=== PATIENT | male | born 1980 | race Caucasian/White ===

== ENCOUNTER 2018-07-15 23:21 | Emergency (ER) | payer BC, SELFPAY ==
[2018-07-15 23:22] VITALS: BP 137/80; PULSE 76; RESP 14; TEMP 36.4; O2SAT 98; BMI 27.3
--- NOTE | 2018-07-16 00:13 | EKG12_ITS ---
Test Reason : Blood Pressure : / mmHG Vent. Rate : 087 BPM Atrial Rate : 087 BPM P-R Int : 152 ms QRS Dur : 088 ms QT Int : 320 ms P-R-T Axes : 073 -21 043 degrees QTc Int : 385 ms Normal sinus rhythm Septal infarct , age undetermined Abnormal ECG Confirmed by ODELL ALBA, NABILA ([id number]), desk editor ALEJANDRO BRADFORD ([id number] on 07/18/2018 1:44:02 PM Referred By: VAL Confirmed By:NABILA BAIN MD
--- NOTE | 2018-07-16 00:15 | ED.VISSUMM ---
- ER Visit Summary Date of Service: 07/16/18 Chief Complaint: Syncopal episode with lip laceration History of Present Illness: The patient is a 38 M history of prior syncope in the past. Said he generally felt well all day today with chills. No cough. No headache. No chest pain. No abdominal pain. No shortness of breath. Was in the bathroom felt faint said he should have sat down he passed out struck his face on the cabinet. Chipping his right upper tooth and lacerated in his midline of his lower lip. Denies any other complaints. No vomiting or diarrhea. No dysuria. Patient states he had limited oral intake today other than several cups of coffee and several beers. States his tetanus status is up-to-date within the last couple of years. Physical Examination: Vital signs are stable and afebrile. There are 8-year-old male accompanied by family at bedside. He is in no distress. HEENT exam dry reactive light. Posterior pharynx normal. Dry mucous membranes. His lower lip has a flap laceration which will need to be repaired. His right upper front tooth has a small chip medially. The teeth are not loose. None of been knocked out. Jaw is nontender with no malocclusion. He can open and close eye difficulty. Scalp is nontender without any signs of trauma. C-spine nontender. Trachea midline. Normal range of motion to his neck. Lungs clear to auscultation bilaterally. Heart regular rhythm rate about 75 no murmur. Chest wall nontender. No ecchymosis or bruising. Abdomen soft and nontender. Normal bowel sounds no peritoneal signs. Pelvic girdle intact. Extremities moves all 4. Full range of motion. Nontender. No deformities. Equal symmetrical elementary reading specialist strength. 5 out of 5. Dorsi plantar flexion intact. 5 out of 5. Normal range of motion both upper and lower extremities. Back is nontender both the spine and the other areas of the back. Neurologically is awake alert with no focal motor deficits. Test Results: CBC shows white count of 5. Hemoglobin 13. Platelets are just below normal at 148,000. Electrolytes are normal. BUN of 21 creatinine 1.3. Gap of 8. EKG showed a sinus rhythm rate 87 no acute abnormality. No ischemia or dysrhythmia. Procedure note: Lower lip flap laceration with repair. 5 cm. Flap was locally anesthetized with Xylocaine. Explored. Washed with saline and irrigated. Closed with 5 5-0 rapid dissolving Vicryl sutures. Patient tolerated procedure well. Good hemostasis and wound closures obtained. Instructed on wound care. Emergency Department Course and Treatment: Clinically patient appears to be dehydrated. Will be given a liter of normal saline. I do feel he had a syncopal event. I do not think he needs any imaging. Also feels most likely has a viral syndrome. Treatment Plan: Fluids and rest. Wound care. He will be placed on amoxicillin for the next 5 days to try to prevent any type of wound infection. Disposition: Discharge Impression: Acute viral syndrome Acute dehydration Acute syncopal event with facial trauma and fall Lower lip flap laceration with ER repair of 5 cm This note was generated with [employer] dictation software. It may contain incorrect words, spelling, and punctuation that were not noted in review of the chart prior to signing ED Disposition - Plan for ED Patient: Referrals: Héctor Ferreira, LANDCARE OFFICER-C [Primary Care Provider] -
--- NOTE | 2018-07-16 00:18 | ED.DCSUM_ITS ---
- ER Visit Summary Date of Service: 07/16/18 Chief Complaint: Syncopal episode with lip laceration History of Present Illness: The patient is a 38 M history of prior syncope in the past. Said he generally felt well all day today with chills. No cough. No headache. No chest pain. No abdominal pain. No shortness of breath. Was in the bathroom felt faint said he should have sat down he passed out struck his face on the cabinet. Chipping his right upper tooth and lacerated in his midline of his lower lip. Denies any other complaints. No vomiting or diarrhea. No dysuria. Patient states he had limited oral intake today other than several cups of coffee and several beers. States his tetanus status is up-to-date within the last couple of years. Physical Examination: Vital signs are stable and afebrile. There are 8-year-old male accompanied by family at bedside. He is in no distress. HEENT exam dry reactive light. Posterior pharynx normal. Dry mucous membranes. His lower lip has a flap laceration which will need to be repaired. His right upper front tooth has a small chip medially. The teeth are not loose. None of been knocked out. Jaw is nontender with no malocclusion. He can open and close eye difficulty. Scalp is nontender without any signs of trauma. C-spine nontender. Trachea midline. Normal range of motion to his neck. Lungs clear to auscultation bilaterally. Heart regular rhythm rate about 75 no murmur. Chest wall nontender. No ecchymosis or bruising. Abdomen soft and nontender. Normal bowel sounds no peritoneal signs. Pelvic girdle intact. Extremities moves all 4. Full range of motion. Nontender. No deformities. Equal symmetrical tool maker bench strength. 5 out of 5. Dorsi plantar flexion intact. 5 out of 5. Normal range of motion both upper and lower extremities. Back is nontender both the spine and the other areas of the back. Neurologically is awake alert with no focal motor deficits. Test Results: CBC shows white count of 5. Hemoglobin 13. Platelets are just below normal at 148,000. Electrolytes are normal. BUN of 21 creatinine 1.3. Gap of 8. EKG showed a sinus rhythm rate 87 no acute abnormality. No ischemia or dysrhythmia. Procedure note: Lower lip flap laceration with repair. 5 cm. Flap was locally anesthetized with Xylocaine. Explored. Washed with saline and irrigated. Closed with 5 5-0 rapid dissolving Vicryl sutures. Patient tolerated procedure well. Good hemostasis and wound closures obtained. Instructed on wound care. Emergency Department Course and Treatment: Clinically patient appears to be dehydrated. Will be given a liter of normal saline. I do feel he had a syncopal event. I do not think he needs any imaging. Also feels most likely has a viral syndrome. Treatment Plan: Fluids and rest. Wound care. He will be placed on amoxicillin for the next 5 days to try to prevent any type of wound infection. Disposition: Discharge Impression: Acute viral syndrome Acute dehydration Acute syncopal event with facial trauma and fall Lower lip flap laceration with ER repair of 5 cm This note was generated with [employer] dictation software. It may contain incorrect words, spelling, and punctuation that were not noted in review of the chart prior to signing ED Disposition - Plan for ED Patient: Referrals: Héctor Ferreira, JUNIOR ENGINEER-C [Primary Care Provider] -
[2018-07-16] MEDS: 0.9% Normal Saline 1,000 ML 1000 ML IV (00:27)
--- NOTE | 2018-07-16 00:27 | ED.RN ---
lidocaine used by to suture pt's lip.
[2018-07-16 00:32] LABS: Absolute Lymphocyte Count 0.88 X10^3/ul (0.83-4.51); Absolute Neutrophil Count 3.8 X10^3/uL (2.0-7.7); Basophil# 0.02 X10^3/uL; Basophil% 0.4 % (0-1); Eosinophil# 0.02 X10^3/uL; Eosinophils% 0.4 % (0-5); Hematocrit 38.5 % (40-54); Hemoglobin 13.7 g/dl (13.0-16.5); Lymphocyte # 0.88 X10^3/ul (4.0); Lymphocyte % 16.8 % (19-41); Mean Corp Hgb Conc 35.6 g/gl (32-36); Mean Corpuscular Hgb 31.6 pg (27.0-32.0); Mean Corpuscular Volume 88.7 fL (80-94); Mean Platelet Vol. 10.2 fl (6.2-12.0); Monocyte% 9.5 % (0-10); Neutrophil # 3.82 X10^3/uL (2.7-7.7); Neutrophil % 72.7 % (47-70); POSITIVE COUNT NO; POSITIVE DIFFERENTIAL NO; POSITIVE MORPHOLOGY NO; Platelet Count 148 K/mm3 (150-450); RBC Distribution Width CV 12.5 % (11.6-14.6); RBC Distribution Width SD 40.6 fl (35.1-43.9); Red Blood Count 4.34 M/mm3 (4.6-6.2); White Blood Count 5.3 K/mm3 (4.4-11.0)
[2018-07-16 00:33] LABS: Anion Gap 8 (5-15); BUN 21 mg/dL (7-18); BUN/Creat Ratio 15.8 RATIO (10-20); Calcium,Total 8.4 mg/dL (8.5-10.1); Chloride 102 mmol/L (98-107); Creatinine, Serum 1.33 mg/dL (0.70-1.30); EST Glomerular Filtration Rate 64 mL/min (>60); Est Glom Filt Rate - Afr Amer 77 mL/min (>60); Estimated Creatinine Clearance 91.55 ml/min; Glucose 117 mg/dL (74-106); Potassium 4.3 mmol/L (3.5-5.1); Sodium Level 138 mmol/L (136-145)
--- NOTE | 2018-07-16 00:58 | ED.DEP ---
ED Disposition - Plan for ED Patient: Disposition: Home or Assisted Living Instructions: ED Syncope Vasovagal, ED Viral Syndrome, ED Laceration Mouth Prescriptions: Amoxicillin 500 mg PO TIDCM #15 tab Referrals: Héctor Ferreira, HEALTH CARE ANALYST-C [Primary Care Provider] - As Needed Additional Instructions: Plenty of fluids and rest. Your dehydrated. Viral syndrome treat with Tylenol. Your lip laceration was closed using 5 rapidly dissolving sutures. There should resolve in the next 2 weeks. If they do not we can always take them out. Ice slip at least 5 times a day for 30 minutes each time for the next 3 days. Motrin for swelling. Were placed on antibiotic amoxicillin to prevent the lip laceration from getting infected.
--- NOTE | 2018-07-16 01:01 | DCINST.ED_ITS ---
ED Disposition - Plan for ED Patient: Disposition: Home or Assisted Living Instructions: ED Syncope Vasovagal, ED Viral Syndrome, ED Laceration Mouth Prescriptions: Amoxicillin 500 mg PO TIDCM #15 tab Referrals: Héctor Ferreira, CLINICAL UNIT EDUCATOR-C [Primary Care Provider] - As Needed Additional Instructions: Plenty of fluids and rest. Your dehydrated. Viral syndrome treat with Tylenol. Your lip laceration was closed using 5 rapidly dissolving sutures. There should resolve in the next 2 weeks. If they do not we can always take them out. Ice slip at least 5 times a day for 30 minutes each time for the next 3 days. Motrin for swelling. Were placed on antibiotic amoxicillin to prevent the lip laceration from getting infected.
[2018-07-16 01:50] VITALS: BP 145/78; PULSE 70; RESP 14; O2SAT 100
== END 2018-07-16 01:51 | disposition home or self-care (01) ==
PROVIDERS: Emergency Provider Emergency Medicine; Family Provider Nurse Practitioner Family; PCP Nurse Practitioner Family
DX: B34.9 Viral infection, unspecified (principal); E86.0 Dehydration; R55 Syncope and collapse; S01.511A Laceration without foreign body of lip, initial encounter; S02.5XXA Fracture of tooth (traumatic), initial encounter for closed fracture; W01.10XA Fall on same level from slipping, tripping and stumbling with subsequent striking against unspecified object, initial encounter; Y93.9 Activity, unspecified; Y92.002 Bathroom of unspecified non-institutional (private) residence as the place of occurrence of the external cause; Y99.9 Unspecified external cause status; Z72.0 Tobacco use
CPT/HCPCS: 12013; 80048; 85025; 93005; 96360; 99285; J7030; A4216